=== PATIENT | male | born 1980 | race African-American/Black ===

== ENCOUNTER 2020-11-27 16:11 | Inpatient (IN) | payer OTHER ==
[2020-11-27] MEDS ORDERED: MENTHOL/PHENOL 1 EACH UD MM PRN (17:57)
[2020-11-27] MEDS ORDERED: MAGNESIUM CITRATE 300 ML BOTTLE PO PRN (17:57)
[2020-11-27] MEDS ORDERED: ACETAMINOPHEN 325 MG TABLET (FP) PO PRN ×2 (17:57)
[2020-11-27] MEDS ORDERED: NICOTINE POLACRILEX 2 MG GUM BUC PRN (17:57)
[2020-11-27] MEDS ORDERED: BISMUTH SUBSALICYLATE 524 MG/30 ML PO PRN (17:57)
[2020-11-27] MEDS ORDERED: MAG HYDROX/AL HYDROX/SIMETH 30 ML UNIT-DOSE CUP PO PRN (17:57)
[2020-11-27] MEDS ORDERED: MAGNESIUM HYDROX 2400MG/30ML ORAL SUSPENSION 30 ML CUP PO PRN (17:57)
[2020-11-27] MEDS ORDERED: ONDANSETRON *ODT* 4 MG TABLET SL PRN (17:57)
[2020-11-27] MEDS ORDERED: METHADONE HCL 10 MG TABLET (FOR DETOX USE ONLY) PO ONE (17:57)
[2020-11-27 18:05] VITALS: BMI 21.2
[2020-11-27] MEDS: hydrOXYzine PAMOATE 25 MG CAPSULE (FP) PO SCH ×2 (20:20→23:45)
[2020-11-27] MEDS: MELATONIN 5 MG TABLETS PO SCH (23:44)
[2020-11-27] MEDS: THIAMINE HCL 100 MG TABLET (FP) PO SCH (23:45)
[2020-11-28] MEDS: hydrOXYzine PAMOATE 25 MG CAPSULE (FP) PO SCH ×5 (05:30→22:34)
[2020-11-28] MEDS ORDERED: METHADONE HCL 5 MG TABLET (FOR DETOX USE ONLY) ONE (08:37)
[2020-11-28] MEDS ORDERED: METHADONE HCL 10 MG TABLET (FOR DETOX USE ONLY) ONE (08:37)
[2020-11-28] MEDS: PRENATAL VITAMINS W/ FOLIC ACID TABLET (FP) PO SCH (09:46)
[2020-11-28] MEDS ORDERED: METHADONE (DETOX) 20 MG, METHADONE (DETOX) 5 MG PO ONE (10:00)
[2020-11-28] MEDS: cloNIDine HCL 0.1 MG TABLET PO PRN ×2 (10:02→16:01)
[2020-11-28 12:11] LABS: HEMATOCRIT 40.6 % (35.4-49); HEMOGLOBIN 14.2 GM/dL (11.7-16.9); MCH 31.2 pg (25.7-33.7); MEAN CELL VOLUME 89.2 fl (80-96); MEAN PLT VOLUME 8.6 fl (7.5-11.1); PLATELET COUNT 218 K/MM3 (134-434); RBC 4.55 M/mm3 (4.00-5.60); RDW 13.3 % (11.9-15.9); WHITE BLOOD COUNT 6.2 K/mm3 (4.0-10.0)
[2020-11-28 12:14] LABS: CALCIUM 9.1 mg/dL (8.5-10.1)
[2020-11-28 12:15] LABS: ALBUMIN 3.6 g/dl (3.4-5.0); BLOOD UREA NITROGEN 16.8 mg/dL (7-18)
[2020-11-28 12:18] LABS: CREATININE 0.9 mg/dL (0.55-1.3)
[2020-11-28 12:19] LABS: BILIRUBIN,TOTAL 0.9 mg/dL (0.2-1); TOT PROT 6.8 g/dl (6.4-8.2)
[2020-11-28] MEDS: IBUPROFEN 400 MG TABLET (FP) PO PRN (16:01)
[2020-11-28] MEDS: METHOCARBAMOL 500 MG TABLET PO PRN (16:01)
[2020-11-28] MEDS: MELATONIN 5 MG TABLETS PO SCH (22:33)
[2020-11-28] MEDS: THIAMINE HCL 100 MG TABLET (FP) PO SCH (22:34)
[2020-11-29] MEDS: hydrOXYzine PAMOATE 25 MG CAPSULE (FP) PO SCH ×5 (05:44→23:53)
[2020-11-29] MEDS ORDERED: METHADONE HCL 10 MG TABLET (FOR DETOX USE ONLY) PO ONE (10:00)
[2020-11-29] MEDS: METHOCARBAMOL 500 MG TABLET PO PRN (10:12)
[2020-11-29] MEDS: IBUPROFEN 400 MG TABLET (FP) PO PRN (10:12)
[2020-11-29] MEDS: PRENATAL VITAMINS W/ FOLIC ACID TABLET (FP) PO SCH (10:14)
[2020-11-29] MEDS: THIAMINE HCL 100 MG TABLET (FP) PO SCH (23:53)
[2020-11-29] MEDS: MELATONIN 5 MG TABLETS PO SCH (23:53)
[2020-11-30] MEDS: hydrOXYzine PAMOATE 25 MG CAPSULE (FP) PO SCH ×5 (06:52→22:39)
[2020-11-30] MEDS ORDERED: METHADONE HCL 5 MG TABLET (FOR DETOX USE ONLY) ONE (09:40)
[2020-11-30] MEDS ORDERED: METHADONE HCL 10 MG TABLET (FOR DETOX USE ONLY) ONE (09:40)
[2020-11-30] MEDS ORDERED: METHADONE (DETOX) 10 MG, METHADONE (DETOX) 5 MG PO ONE (10:00)
[2020-11-30] MEDS: PRENATAL VITAMINS W/ FOLIC ACID TABLET (FP) PO SCH (10:13)
[2020-11-30] MEDS: METHOCARBAMOL 500 MG TABLET PO PRN ×2 (10:14→22:39)
[2020-11-30] MEDS: MELATONIN 5 MG TABLETS PO SCH (22:39)
[2020-11-30] MEDS: THIAMINE HCL 100 MG TABLET (FP) PO SCH (22:39)
[2020-12-01] MEDS: hydrOXYzine PAMOATE 25 MG CAPSULE (FP) PO SCH ×5 (06:13→23:17)
[2020-12-01] MEDS ORDERED: METHADONE HCL 10 MG TABLET (FOR DETOX USE ONLY) PO ONE (10:00)
[2020-12-01] MEDS: PRENATAL VITAMINS W/ FOLIC ACID TABLET (FP) PO SCH (10:04)
[2020-12-01] MEDS ORDERED: cloNIDine HCL 0.1 MG TABLET PO PRN (11:24)
[2020-12-01] MEDS: MELATONIN 5 MG TABLETS PO SCH (23:16)
[2020-12-01] MEDS: THIAMINE HCL 100 MG TABLET (FP) PO SCH (23:17)
[2020-12-02] MEDS: hydrOXYzine PAMOATE 25 MG CAPSULE (FP) PO SCH ×2 (05:22→08:59)
[2020-12-02] MEDS ORDERED: METHADONE HCL 5 MG TABLET (FOR DETOX USE ONLY) PO ONE (06:00)
[2020-12-02] MEDS: PRENATAL VITAMINS W/ FOLIC ACID TABLET (FP) PO SCH (08:59)
[2020-12-02 09:26] VITALS: BP 131/84; PULSE 77; TEMP 97.8
== END 2020-12-02 09:21 | disposition home or self-care (01) | DRG 773 ==
LOC: YASAS 16:11 → Y6N 19:12
PROVIDERS: ADMIT Allergy & Immunology; ATTEND Allergy & Immunology
PROC: HZ2ZZZZ Detoxification Services for Substance Abuse Treatment (ICD-10-PCS; principal; 2020-11-27)
DX: F11.23 Opioid dependence with withdrawal (principal); F17.210 Nicotine dependence, cigarettes, uncomplicated; I10 Essential (primary) hypertension
CPT/HCPCS: 36415; 80053; 85027; 86780; C9803; J0735; U0003; U0005